=== PATIENT | female | born 1960 | race Caucasian/White ===

== ENCOUNTER 2017-04-27 09:05 | Emergency (ER) | payer BC, MEDICARE, OTHER ==
[2017-04-27 09:28] VITALS: BP 117/83
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
--- NOTE | 2017-04-27 10:21 | CT ---
C-SPINE CT. HISTORY: Extremity numbness. TECHNIQUE: Axial cuts are obtained through the cervical spine. Sagittal and coronal images were alison nstructed. Total DLP: 329. FINDINGS: The cervical vertebrae demonstrate normal alignment. The vertebral bodies are normal in height. The posterior elements are intact. No posttraumatic findings are demonstrated. There are no findings of spinal or foraminal stenosis. The prevertebral soft tissues are normal in thickness. There is limite d evaluation of the spinal cord. There is no evidence for mass effect upon the cord. IMPRESSION: Negative exam. MRI would be useful for further evaluation of the spinal cord if clinical ly indicated.
== END 2017-04-27 12:09 | disposition home or self-care (01) ==
LOC: JP.ED 09:05
DX: R20.0 Anesthesia of skin (principal); R20.2 Paresthesia of skin; J45.909 Unspecified asthma, uncomplicated; F41.9 Anxiety disorder, unspecified; F32.9 Major depressive disorder, single episode, unspecified; E11.9 Type 2 diabetes mellitus without complications; D64.9 Anemia, unspecified; E03.9 Hypothyroidism, unspecified; Z85.828 Personal history of other malignant neoplasm of skin; Z90.49 Acquired absence of other specified parts of digestive tract; Z98.890 Other specified postprocedural states; Z79.82 Long term (current) use of aspirin; Z79.899 Other long term (current) drug therapy; Z88.8 Allergy status to other drugs, medicaments and biological substances
CPT/HCPCS: 72125; 72125-26; 99284-25